=== PATIENT | male | born 1960 | race Caucasian/White ===

== ENCOUNTER → 2017-05-19 | Outpatient (CLI) | payer OTHER | END | disposition home or self-care (01) | LOC: ROC 10:03 | PROVIDERS: ATTEND Radiology Radiation Oncology | DX: C62.92 Malignant neoplasm of left testis, unspecified whether descended or undescended (principal) | CPT/HCPCS: 99212; G0463 ==

== ENCOUNTER 2019-07-04 10:13 | Day surgery (SDC) | payer OTHER ==
[~2019-07-04] VITALS: Ht 170.2 cm; Wt 70.5 kg
== END 2019-07-04 16:42 | disposition home or self-care (01) ==
LOC: CACL 10:13
PROVIDERS: ATTEND Internal Medicine Cardiovascular Disease
DX: I25.10 Atherosclerotic heart disease of native coronary artery without angina pectoris (principal); E78.5 Hyperlipidemia, unspecified; I10 Essential (primary) hypertension; Z85.07 Personal history of malignant neoplasm of pancreas; Z85.47 Personal history of malignant neoplasm of testis; Z72.89 Other problems related to lifestyle
CPT/HCPCS: 36415; 71046; 80048; 85025; 85610; 85730; 93458; 99156; C1769; C1894; J1644; J2250; J3010; Q9967

== ENCOUNTER 2019-10-29 06:57 | Day surgery (SDC) | payer OTHER ==
[~2019-10-29] VITALS: Ht 170.2 cm; Wt 73.7 kg
[~2019-10-29 06:57] MED LIST: ASPI-496 PO; ATOR-2 PO; METO25TA35 PO; PRAS10TA4 PO
[2019-10-29] MEDS ORDERED: BUPIVACAINE/PF 0.5% ONE (07:11)
[2019-10-29] MEDS ORDERED: EPINEPHRINE 1 MG/ML, 1ML ONE (07:12)
[2019-10-29] MEDS ORDERED: LACTATED RINGERS 1,000 ML IV SCH (07:29)
[2019-10-29] MEDS ORDERED: ACETAMINOPHEN 500 MG TABLET PO ONE (07:30)
[2019-10-29] MEDS ORDERED: GABAPENTIN 300 MG CAPSULE PO ONE (07:30)
[2019-10-29 07:39] VITALS: BP 125/80
[2019-10-29] MEDS ORDERED: MEPERIDINE/PF 25MG/ML,1ML IVPush PRN (08:00)
[2019-10-29] MEDS ORDERED: hydrALAzine 20 MG/ML, 1ML IV PRN (08:00)
[2019-10-29] MEDS ORDERED: HYDROmorphone 2 MG/ML, 1ML IVPush PRN (08:00)
[2019-10-29] MEDS ORDERED: LABETALOL 5MG/ML, 20ML IV PRN (08:00)
[2019-10-29] MEDS ORDERED: PROMETHAZINE 25 MG/ML, 1ML IV PRN (08:00)
[2019-10-29] MEDS ORDERED: HYDROcodone/APAP 7.5-325MG/15ML UDC PO PRN (08:00)
[2019-10-29] MEDS ORDERED: ONDANSETRON 2MG/ML, 2ML IV PRN (08:00)
[2019-10-29] MEDS ORDERED: FENTANYL PF 100 MCG/2ML IV PRN (08:00)
[2019-10-29] MEDS ORDERED: EPHEDRINE 50 MG/ML, 1ML IVPush PRN (08:00)
[2019-10-29] MEDS ORDERED: MIDAZOLAM 1 MG/ML, 2ML ONE (08:58)
[2019-10-29] MEDS ORDERED: GLYCOPYRROLATE 0.2MG/1ML, 5ML ONE (08:58)
[2019-10-29] MEDS ORDERED: FENTANYL PF 100 MCG/2ML ONE (08:58)
[2019-10-29] MEDS ORDERED: DEXAMETHASONE 4 MG/ML, 1ML ONE (08:58)
[2019-10-29] MEDS ORDERED: ROCURONIUM 10MG/ML,5ML ONE (08:58)
[2019-10-29] MEDS ORDERED: SUCCINYLCHOLINE 20 MG/ML, 10ML ONE (08:58)
[2019-10-29] MEDS ORDERED: PROPOFOL 10 MG/ML, 20ML ONE (08:58)
[2019-10-29] MEDS ORDERED: ONDANSETRON 2MG/ML, 2ML ONE (08:58)
[2019-10-29] MEDS ORDERED: CEFAZOLIN 1,000 MG ONE (08:58)
[2019-10-29] MEDS ORDERED: NEOSTIGMINE 1 MG/ML, 10ML ONE (08:58)
[2019-10-29] MEDS ORDERED: LIDOCAINE GEL 2%, 5ML ONE (09:02)
[2019-10-29] MEDS ORDERED: PHENYLEPHRINE 10 MG/ML ONE (09:12)
[2019-10-29] MEDS ORDERED: KETOROLAC 30 MG/1 ML ONE (09:20)
[2019-10-29] MEDS ORDERED: EPHEDRINE 50 MG/ML, 1ML ONE (09:47)
== END 2019-10-29 12:10 | disposition home or self-care (01) ==
LOC: OUT 06:57
PROVIDERS: ATTEND Surgery Vascular Surgery
DX: K43.2 Incisional hernia without obstruction or gangrene (principal); K66.0 Peritoneal adhesions (postprocedural) (postinfection); E78.5 Hyperlipidemia, unspecified; I10 Essential (primary) hypertension; I25.10 Atherosclerotic heart disease of native coronary artery without angina pectoris; N40.0 Benign prostatic hyperplasia without lower urinary tract symptoms; I25.2 Old myocardial infarction; Z79.82 Long term (current) use of aspirin; Z79.899 Other long term (current) drug therapy; Z88.7 Allergy status to serum and vaccine; Z85.07 Personal history of malignant neoplasm of pancreas; Z90.411 Acquired partial absence of pancreas; Z98.890 Other specified postprocedural states; Z80.3 Family history of malignant neoplasm of breast; Z80.1 Family history of malignant neoplasm of trachea, bronchus and lung; Z82.0 Family history of epilepsy and other diseases of the nervous system; Z80.7 Family history of other malignant neoplasms of lymphoid, hematopoietic and related tissues
CPT/HCPCS: 49560; 49568; 93005; C1729; C1781; J0330; J0690; J1100; J1885; J2250; J2370; J2405; J2704; J2710; J3010; J7120; J0171

== ENCOUNTER → 2021-03-10 | Outpatient (CLI) | payer OTHER | END | disposition home or self-care (01) | LOC: CVU 08:55 | PROVIDERS: ATTEND Internal Medicine Clinical Cardiac Electrophysiology | DX: I08.3 Combined rheumatic disorders of mitral, aortic and tricuspid valves (principal) | CPT/HCPCS: 93306; 93356 ==

== ENCOUNTER → 2021-04-06 | Outpatient (CLI) | payer OTHER | END | disposition home or self-care (01) | LOC: CFH 07:22 | PROVIDERS: ATTEND Internal Medicine Clinical Cardiac Electrophysiology | DX: I10 Essential (primary) hypertension (principal); I25.9 Chronic ischemic heart disease, unspecified; R53.83 Other fatigue | CPT/HCPCS: 78452; 93017; A9502 ==